=== PATIENT | female | born 1935 | race Caucasian/White ===

== ENCOUNTER 2017-07-17 08:27 | Inpatient (IN) ==
[2017-07-17] MEDS ORDERED: IOPAMIDOL 100 ML BOTTLE IV ONE (08:28)
--- NOTE | 2017-07-17 09:12 | Cat Scan Report ---
CLINICAL INFORMATION: Altered level of consciousness and fever COMPARISON: 03/25/2017 TECHNIQUE: 2.5 mm helical slices were obtained in the skull base to vertex. Following reconstruction, axial reformatted images were reviewed at bone and parenchymal windows. The exam was performed using radiation dose optimization techniques including, but not limited to, automated exposure control, adjustment of the mA and/or kV according to patient size and use of iterative reconstruction technique. FINDINGS: The ventricles, sulci, fissures, and cisterns are symmetrically enlarged palpable with moderate age-related atrophy - no subdural hemorrhage or other extra-axial fluid collections appreciated. Moderate patchy chronic ischemic changes in the deep cerebral white matter seen - as before. There is also focal chronic ischemia in the left external capsule and 8 mm remote lacunar infarct in the right lentiform nucleus. There is no intracerebral hemorrhage, mass effect edema or other acute finding. Bone windows show no osseous abnormality IMPRESSION: Moderate atrophy and chronic ischemic changes in the the cerebral white matter and remote lacunar infarct right lentiform nucleus. No acute finding - stable from 03/25/2017. Interpreted and Authenticated by: Jose March 07/17/17
[2017-07-17 09:48] LABS: Mean Cell Volume 76.6 fL (80.0-100.0); Mean Corpuscular HGB Conc 31.7 g/dL (31.0-36.0); Mean Corpuscular Hemoglobin 24.3 pg (26.0-34.0); Platelet Count 439 K/mcL (140-440); RBC 4.07 M/mcL (4.00-5.20); Red Cell Distribution Width 18.2 % (11.5-14.5)
--- NOTE | 2017-07-17 09:50 | Emergency Department Note ---
Altered Mental Status HPI - General Chief Complaint: Weakness Stated Complaint: Weakness, Altered LOC, Fever Time Seen by Provider: 07/17/17 09:47 Source: patient, family, EMS Mode of arrival: EMS Limitations: no limitations - History of Present Illness HPI Narrative: See history and physical dictated by Dr. jaramillo. At the change of shift I am assuming care. On my review with patient, the history includes 3 weeks ago a history of a fall when she was seen in the emergency room and then when to her [id number]'s mother's home for care because there was space there. She was able after that fall to still walk with a walker but she has had a 3 week decline in her general strength as well as mental status changes where she has been less able to respond appropriately or sharply where as previously she was driving and could do well with math and spelling. She is on no new medications. No previous known history of dementia or Alzheimer. Father had dementia. No previous stroke history. She is also been worked up for back pain that has been severe and fairly new. She sees Dr. Viramontes at [facility] has, also seen, student records specialist and had x-ray and MRI done without any findings that were surgical. She has new stomach pain. This is in her abdomen and she points to her mid to lower half of her abdomen. - Related Data Home Medications Medication Instructions Recorded Confirmed Vitamin D3 1 each PO QDAY 08/23/16 08/23/16 cyanocobalamin (vit B-12) 5,000 5,000 mcg SUBLINGUAL QDAY 08/23/16 08/23/16 mcg sublingual tablet omega-3 fatty acids 3 cap PO QDAY 08/23/16 08/23/16 Previous Rx's Medication Instructions Recorded denosumab 60 mg/mL subcutaneous 60 mg SUB-Q .COMPLEX #1 ml 07/14/15 syringe sertraline 50 mg tablet 50 mg PO QDAY #90 tab 09/10/15 simvastatin 10 mg tablet 10 mg PO QPM #90 tab 09/10/15 levothyroxine 50 mcg capsule 50 mcg PO QDAY #90 cap 10/08/15 gabapentin 600 mg tablet 600 mg PO TID 30 Days #90 tab 11/12/15 hydroxychloroquine 200 mg tablet 200 mg PO QDAY #30 tab 09/28/16 Ciprofloxacin HCl [Cipro] 500 mg PO BID #14 tab 06/13/17 Allergies Allergy/AdvReac Type Severity Reaction Status Date / Time aspirin Allergy Unknown Unknown Verified 08/23/16 10:09 morphine Allergy Unknown Unknown Verified 08/23/16 10:09 Pollens Allergy Unknown Unknown Uncoded 08/23/16 10:09 Past Medical History - Past Medical History Medical history: Reports: arthritis, cancer (breast), hyperlipidemia, other ( anemia (microcytic), Sjogren's disease, osteoporosis, neuropathy. Frequent falls. Raynaud's. Chronic narcotics. Spondylolisthesis.). 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 Absent: respiratory distress, wheezes, stridor, accessory muscle use Location: rales: Left (Base, mild, initial inspiratory) Cardiovascular: Present: regular rate, normal rhythm. Absent: systolic murmur, diastolic murmur Abdominal: Present: soft. Absent: distention, tenderness, guarding, rebound, organomegaly, ascites, mass Extremities: Absent: pedal edema, pretibial edema Neurological: Present: alert Speech: Present: fluid speech Cranial nerves: EOM function (II, III, IV, ): Normal, tongue deviation (XII): Normal Cerebellar function: finger to nose: Normal, heel to lares: Abnormal Right, Abnormal Left (Does not seem to comprehend the instructions to pull her heel all the way up. She is not able to comprehend or obey with the right side.) Motor strength - LUE: 4/5 Motor strength - RUE: 4/5 Motor strength - LLE: 4/5 Motor strength - RLE: 4/5 Psychiatric: Present: flat affect Skin: Present: warm, dry Course Course Narrative: 9:45 AM Will add chest x-ray. Labs are still pending. CT of the head was negative. 10:20 AM Has some hypokalemia at 3.2. Alkaline phosphate is quite significantly elevated at 382. With this in combination with abdominal pain will do an abdominal pelvic CT. We will add a TSH also. 11:05 AM TSH is normal. UA is unremarkable on the dip. Will make sure there is a culture. Chart review includes that her anemia is chronic and they have tried iron replacement in the past. Other history also reviewed. CT of the abdomen still pending. 1:15 PM in the past 1 hour spoken with patient about the CT scan which demonstrates an apple core lesion 3.3 cm in the right mid colon as well as 2 large masses in the right anterior mesenteric cavity 5 cm and 2 cm respectively as well as multiple suspicious lymph nodes that appear to be metastatic lesions. In the liver are widely disseminated multiple large lesions including up to 8.5 cm. Discussion with surgeon, Dr. 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 I discussed with Dr. Gomez, oncologist at [facility], with consideration for her long-term care where to go afterwards. Biopsy is needed. Her PE may be purely incidental as well but anticoagulation after biopsy would be considered. In speaking with her family, she is unable to walk with any degree of strength or surety to prevent falls. She is unable to return to her [id number] mother's home because of the intensity of care and risks there. She will therefore, need admission for qualifying for additional long-term care as well as to workup the causes of her mental status changes and weakness to make sure there are to other underlying problems or conditions. She can meanwhile then have the ultrasound or CT guided biopsy. She can have consultation with the oncologist in the future. I spoke with hospitalist, Dr. Tian, who kindly accepted her care and she will be sent to [facility]. Vital Signs Temperature 98.6 F 07/17/17 08:29 Pulse Rate 93 H 07/17/17 08:29 Respiratory Rate 18 07/17/17 08:29 Blood Pressure 111/61 07/17/17 08:29 Pulse Oximetry (%) 97 07/17/17 08:29 Temperature 98.6 F 07/17/17 08:29 Pulse Rate 83 07/17/17 12:01 Respiratory Rate 15 07/17/17 12:01 Blood Pressure 93/66 07/17/17 12:01 Pulse Oximetry (%) 98 07/17/17 12:01 Altered Mental Status - Lab Data Lab results reviewed: Yes I reviewed the patient's lab results. Result diagrams: 07/17/17 08:55 07/17/17 08:54 Lab Results 07/17/17 07/17/17 07/17/17 Range/Units 08:54 08:54 08:54 WBC (4.5-11.0) K/mcL RBC (4.00-5.20) M/mcL Hgb (12.0-15.0) g/dL Hct (36.0-48.0) % POC Hct 33.0 L (36.0-48.0) % MCV (80.0-100.0) fL MCH (26.0-34.0) pg MCHC (31.0-36.0) g/dL RDW (11.5-14.5) % Plt Count (140-440) K/mcL MPV (7.4-10.4) fL Total Counted Seg Neutrophils % (38-78) % Band Neutrophils % (0-10) % Lymphocytes % (15-49) % Monocytes % (Manual) (1-12) % Eosinophils % (Manual) (0-7) % Platelet Estimate (NORMAL) RBC Morphology (NORMAL) Hypochromasia (NONE SEEN) Poikilocytosis (NONE SEEN) Anisocytosis (NONE SEEN) Microcytosis (NONE SEEN) POC PT 16.5 H (11.9-14.5) sec POC INR 1.4 H (0.9-1.2) APTT 37 (20-37) sec POC Sodium 135 (133-145) mmol/L Sodium 134 (133-145) mmol/L POC Potassium 3.0 L (3.3-5.1) mmol/L Potassium 3.2 L (3.3-5.1) mmol/L POC Chloride 100 (96-108) mmol/L Chloride 96 (96-108) mmol/L Carbon Dioxide 23 (22-30) mmol/L POC Total CO2 24 (22-30) mmol/L Anion Gap 15.0 (8-16) POC BUN 18 (8-23) mg/dl BUN 17 (8-23) mg/dl Creatinine 0.7 (0.6-1.1) mg/dl POC Creatinine 0.6 (0.6-1.1) mg/dl GFR Calculation 81 Glucose 112 H (70-105) mg/dL POC Glucose 115 H (70-105) mg/dL Calcium 9.1 (8.6-10.4) mg/dl POC WB Ioniz Calcium 1.17 (1.16-1.32) mmol/L Total Bilirubin 0.8 (0.0-1.0) mg/dL AST 137 H (0-37) U/l ALT 57 H (0-40) U/l Alkaline Phosphatase 382 H (39-117) U/L Troponin T < 0.01 (0-0.03) ng/ml Total Protein 7.5 (5.9-8.4) gm/dL Albumin 2.8 L (3.2-5.2) gm/dL Globulin 4.7 H (2.2-3.7) gm/dL Albumin/Globulin Ratio 0.6 L (1.0-2.3) TSH (0.27-5.01) uIU/ml Urine Color Urine Appearance Urine pH (5.0-9.0) Ur Specific [place] (1.000-1.035) Urine Protein (NEG) mg/dL Urine Glucose (UA) (NEG) mg/dL Urine Ketones (NEG) mg/dL Urine Occult Blood (<0.03) mg/dL Urine Nitrate (NEG) Urine Bilirubin (NEG) mg/dL Urine Urobilinogen (NEG) mg/dL Ur Leukocyte Esterase (NEG) /uL Ur Culture Indicated? 07/17/17 07/17/17 07/17/17 Range/Units 08:55 08:57 09:35 WBC 8.3 (4.5-11.0) K/mcL RBC 4.07 (4.00-5.20) M/mcL Hgb 9.9 L (12.0-15.0) g/dL Hct 31.2 L (36.0-48.0) % POC Hct (36.0-48.0) % MCV 76.6 L (80.0-100.0) fL MCH 24.3 L (26.0-34.0) pg MCHC 31.7 (31.0-36.0) g/dL RDW 18.2 H (11.5-14.5) % Plt Count 439 (140-440) K/mcL MPV 8.4 (7.4-10.4) fL Total Counted 100 Seg Neutrophils % 91 H (38-78) % Band Neutrophils % 2 (0-10) % Lymphocytes % 2 L (15-49) % Monocytes % (Manual) 4 (1-12) % Eosinophils % (Manual) 1 (0-7) % Platelet Estimate Normal (NORMAL) RBC Morphology Abnorm A (NORMAL) Hypochromasia 1+ A (NONE SEEN) Poikilocytosis 1+ A (NONE SEEN) Anisocytosis 1+ A (NONE SEEN) Microcytosis 1+ A (NONE SEEN) POC PT (11.9-14.5) sec POC INR (0.9-1.2) APTT (20-37) sec POC Sodium (133-145) mmol/L Sodium (133-145) mmol/L POC Potassium (3.3-5.1) mmol/L Potassium (3.3-5.1) mmol/L POC Chloride (96-108) mmol/L Chloride (96-108) mmol/L Carbon Dioxide (22-30) mmol/L POC Total CO2 (22-30) mmol/L Anion Gap (8-16) POC BUN (8-23) mg/dl BUN (8-23) mg/dl Creatinine (0.6-1.1) mg/dl POC Creatinine (0.6-1.1) mg/dl GFR Calculation Glucose (70-105) mg/dL POC Glucose (70-105) mg/dL Calcium (8.6-10.4) mg/dl POC WB Ioniz Calcium (1.16-1.32) mmol/L Total Bilirubin (0.0-1.0) mg/dL AST (0-37) U/l ALT (0-40) U/l Alkaline Phosphatase (39-117) U/L Troponin T (0-0.03) ng/ml Total Protein (5.9-8.4) gm/dL Albumin (3.2-5.2) gm/dL Globulin (2.2-3.7) gm/dL Albumin/Globulin Ratio (1.0-2.3) TSH 1.94 (0.27-5.01) uIU/ml Urine Color Yellow Urine Appearance Cloudy Urine pH 5.0 (5.0-9.0) Ur Specific [place] 1.020 (1.000-1.035) Urine Protein Neg (NEG) mg/dL Urine Glucose (UA) Negative (NEG) mg/dL Urine Ketones Neg (NEG) mg/dL Urine Occult Blood Neg (<0.03) mg/dL Urine Nitrate Neg (NEG) Urine Bilirubin Neg (NEG) mg/dL Urine Urobilinogen Neg (NEG) mg/dL Ur Leukocyte Esterase Neg (NEG) /uL Ur Culture Indicated? No - Radiology Data Radiology results reviewed: Yes I reviewed the patient's radiology results. - EKG Data EKG results narrative: no acute ACS findings. Will be interpreted by heat and vent aircraft mechanic. Disposition Pt seen by PRESSURISED CONTAINER FILLER/PA only: No Clinical Impression: Weakness, RBC microcytosis, Hypokalemia, Elevated alkaline phosphatase level, Metastatic cancer, Lesion of colon Altered mental status, unspecified Qualifiers: Altered mental status type: unspecified Qualified Code(s): R41.82 - Altered mental status, unspecified Anemia Qualifiers: Anemia type: unspecified type Qualified Code(s): D64.9 - Anemia, unspecified Abdominal pain Qualifiers: Abdominal location: lower abdomen, unspecified Qualified Code(s): R10.30 - Lower abdominal pain, unspecified Disposition: Xfer As Inpt ([facility]) Condition: Serious
[2017-07-17 10:06] LABS: ALT/SGPT 57 U/l (0-40); Albumin 2.8 gm/dL (3.2-5.2); Albumin/Globulin Ratio 0.6 (1.0-2.3); Alkaline Phosphatase 382 U/L (39-117); Blood Urea Nitrogen 17 mg/dl (8-23)
[2017-07-17 10:21] LABS: Appearance,Urine CLOUDY; Bilirubin,Urine NEG (NEG); Color,Urine YELLOW; Glucose,Urine (UA) NEGATIVE (NEG); Leukocyte Esterase,Urine NEG /uL (NEG); Protein,Urine NEG (NEG); Urine Blood NEG mg/dL (<0.03); Urobilinogen,Urine NEG (NEG)
[2017-07-17 10:31] LABS: Anisocytosis 1+ (NONE SEEN); Band Neutrophils % 2 % (0-10); Eosinophils % (Manual) 1 % (0-7); Hypochromasia 1+ (NONE SEEN); Lymphocytes % 2 % (15-49); Monocytes % (Manual) 4 % (1-12); Platelet Estimate NORMAL (NORMAL); RBC Morphology ABNORM (NORMAL); Segmented Neutrophils % 91 % (38-78)
--- NOTE | 2017-07-17 10:36 | XRay Report ---
CLINICAL INFORMATION: Weakness and rales the left base COMPARISON: 06/22/2017 FINDINGS: Heart size, mediastinum and pulmonary vessels are normal. A small vague interstitial infiltrate may be developing in the right lower lobe. Right diaphragm is mildly elevated. IMPRESSION: Possible developing right lower lobe infiltrate. Suggest short-term radiographic follow-up. Interpreted and Authenticated by: Jose March 07/17/17
--- NOTE | 2017-07-17 11:54 | Cat Scan Report ---
CLINICAL INFORMATION: Abdominal pain with elevated alkaline phosphatase and fever COMPARISON: Localizer images, which included the abdomen, from a lumbar MRI - 03/26/2014 TECHNIQUE: Following enteric contrast, 80 cc of Isovue-300 were injected intravenously, and 60 seconds later, 0.625 mm helical slices were obtained from the mid heart through the subtrochanteric regions. Following reconstruction, 2.5 mm sagittal, coronal and axial reformatted images were processed and reviewed at bone, lung and soft tissue windows. Five minutes later, 0.625 mm helical slices were obtained from the mid heart through the kidneys and viewed at soft tissue windows.The exam was performed using radiation dose optimization techniques including, but not limited to, automated exposure control, adjustment of the mA and/or kV according to patient size and use of iterative reconstruction technique. FINDINGS: Lung bases show no nodules - only minor atelectasis. There appears to be an embolus within the medial basilar segmental of the right lower lobe pulmonary artery. This should be confirmed with CT pulmonary angiogram. Images of the abdomen show multiple large inhomogeneous low-attenuation lesions with rim enhancement which are widely disseminated throughout the liver. They range up to 8.5 cm in the right hepatic lobe. They're suspicious for metastatic disease. The gallbladder and bile ducts are normal: CBD is 5 mm. Both kidneys, adrenal glands, spleen, pancreas and aorta including aortic branches are normal in size configuration and attenuation without focal lesion. Images through the pelvis oh the urinary bladder to be unremarkable. Uterus is either quite diminutive or is been partially surgically resected. The ovarian regions are normal. Right colon is poorly distended, but there is a probable 3.3 cm apple core mass in the mid right colon (axial image 107 and sagittal image 49). There are also two large masses, 5 cm and 2.5 cm, respectively in the in the adjacent right anterior mesenteric cavity. There is suspicious for metastatic lymph nodes. The remainder of the colon, small bowel and stomach are normal. Bone windows show no osseous metastases. There is L3-4 spondylolysis with grade 1 spinal listhesis. IMPRESSION: 1. Suspect 3.3 apple core mass in the mid right colon with two large metastatic lymph nodes in the adjacent right anterior mesenteric cavity. In addition, there are multiple large metastases dominating the liver parenchyma. Metastatic colon carcinoma is suspected. Suggest ultrasound-guided biopsy of one of the liver metastases for tissue diagnosis. Colonoscopy might be considered. 2. Probable pulmonary embolus - medial basilar segmental right lower lobe pulmonary artery. Suggest: CT pulmonary angiogram Interpreted and Authenticated by: Jose March 07/17/17
[2017-07-17] MEDS ORDERED: oxyCODONE HCL 5 MG TABLET PO PRN (15:24)
[2017-07-17] MEDS ORDERED: HYDROmorphone 2 MG/ML VIAL IV PRN (15:24)
[2017-07-17] MEDS ORDERED: POTASSIUM CHLORIDE 40 MEQ in DEXTROSE 5% IN WATER 500 ML IV ONE (15:24)
[2017-07-17] MEDS ORDERED: NALOXONE HCL 0.4 MG/ML VIAL IV PRN (15:24)
[2017-07-17] MEDS ORDERED: ONDANSETRON 4 MG/2 ML VIAL IV PRN (15:24)
[2017-07-17] MEDS ORDERED: LORazepam 2 MG/ML VIAL IV ONE (15:56)
--- NOTE | 2017-07-17 16:43 | Internal Med History&Physical ---
Medical - H&P: HPI Patient information: Note initiated : 07/17/17 at 4:36 pm Service Date, if different from initiated Date: [] Patient: Odessa Owens 82 y/o F admitted on 07/17/17 for Weakness, Altered LOC , Fever. Chief Complaint: [] History of present illness: Ms. Owens is a 82 year old Female living by self, with close watch by family presents to the ER today for evaluation of altered mental status, the patient has not been her self over the last 3 weeks, decreased appetitie, and weight loss of approximately 11lbs. The patient this AM was very confused, unable to answer questions appropriately and therefore was brought in for further evaluation. Initially given her confusion, TIA/ CVA was considered, Head CT was done in the ER which was neg, CXR showed possible infiltrate in the right lower lung. The patient then noted she is also having abdominal pain. The patient underwent a Abdomen and pelvis CT which showed a tumor apple core in the right colon, multiple metatstasis in the liver, and retroperitoneal metastasis. Initial Dr Niño was consulted who noted that she is not a surgical candidate. Dr Gomez was consulted on the phone by the ER and as per the ER provider, the patient did not warrant oncological intervention at this time. HE refused to accept the patient as transfer and advised workup as outpatient. GIven that the patient was confused, and possible pna, CT abdomen showing new mass, edison signifcant mes, the patient was admitted ot the hospital for further management. The patient denies any acute complaints, most history provided by family, she wishes to be DNR, I reviewed the overall prognosis with the family, given her overall poor functional score, her significant metastatic burden I dont think she is a candidate for any aggresive intervention. The family wants the initial workup done and will consider palliative care should this route returner to be cancerous. Will admit the patient to the hospital for workup of this malignancy, PNA,and PE , given liver biopsy planned, I am not pursuing anticoagulation of this patient at this time. The patient has not had a colonoscopy as per the family. All systems: reviewed and no additional remarkable complaints except as stated ( intermittent abdomen pain, some headaches, rest is negative.) Medical - H&P: PMH Medical history: Medical History (This Medical Record has been edited. Action required.) Anemia (Chronic) Arthritis (Chronic) Breast cancer (Chronic) Muscle pain (Chronic) Fatigue (Chronic) Hypercholesterolemia (Chronic) Osteoarthritis (Chronic) Osteoporosis (Chronic) History of Sjogren's disease (Chronic) Long-term use of immunosuppressant medication (Chronic) Lumbar radiculopathy (Acute) Trochanteric bursitis, right hip (Acute) History of chemotherapy (Chronic ~1988) History of radiation therapy (Chronic ~1988) Hypothyroidism (Chronic) Dyslipidemia (Chronic) Intention tremor (Chronic) Diverticulosis of sigmoid colon (Chronic) Accident (Resolved) Surgical history: Past Surgical History (This Medical Record has been edited. Action required.) History of colonoscopy (Chronic 11/08/06) History of mastectomy (Chronic) History of orthopedic surgery (Chronic ~1989) History of rotator cuff surgery (Chronic) History of surgery (Chronic) Status post cervical spinal fusion (Chronic) History of back surgery (Resolved) History of carpal tunnel repair (Resolved) History of colonoscopy (Resolved) History of elbow surgery (Resolved) History of hip surgery (Resolved) History of mastectomy, total (Resolved) S/P ankle fusion (Resolved) Status post wrist surgery (Resolved) Pertinent family history: Family History (This Medical Record has been edited. Action required.) Father Dementia Aunt Diabetes mellitus Mother Arthritis Neoplasm of lung Brother Essential hypertension Grandfather Myocardial Infarction Other CVA (cerebral vascular accident) Cancer Epilepsy Medical - H&P: Meds Home Medications Medication Instructions Recorded Confirmed Type denosumab 60 mg/mL subcutaneous 60 mg SUB-Q .COMPLEX #1 ml 07/14/15 08/23/16 Rx syringe sertraline 50 mg tablet 50 mg PO QDAY #90 tab 09/10/15 08/23/16 Rx simvastatin 10 mg tablet 10 mg PO QPM #90 tab 09/10/15 08/23/16 Rx levothyroxine 50 mcg capsule 50 mcg PO QDAY #90 cap 10/08/15 08/23/16 Rx gabapentin 600 mg tablet 600 mg PO TID 30 Days #90 tab 11/12/15 08/23/16 Rx Vitamin D3 1 each PO QDAY 08/23/16 08/23/16 History cyanocobalamin (vit B-12) 5,000 5,000 mcg SUBLINGUAL QDAY 08/23/16 08/23/16 History mcg sublingual tablet omega-3 fatty acids 3 cap PO QDAY 08/23/16 08/23/16 History hydroxychloroquine 200 mg tablet 200 mg PO QDAY #30 tab 09/28/16 Rx Ciprofloxacin HCl [Cipro] 500 mg PO BID #14 tab 06/13/17 Rx Allergies Allergy/AdvReac Type Severity Reaction Status Date / Time aspirin Allergy Unknown Unknown Verified 08/23/16 10:09 morphine Allergy Unknown Unknown Verified 08/23/16 10:09 Pollens Allergy Unknown Unknown Uncoded 08/23/16 10:09 Medical - H&P: Exam - Constitutional Vitals: Temp Pulse Resp BP Pulse Ox 98.7 F 95 H 12 119/74 95 07/17/17 15:45 07/17/17 15:45 07/17/17 15:45 07/17/17 15:45 07/17/17 15:45 Exam: GENERAL: The patient confused aoo x 1, frail individual VITAL SIGNS: Reviewed and as noted elsewhere. HEENT: Head is normocephalic and atraumatic. Extraocular muscles are intact. Pupils are equal, round, and reactive to light. Nares appeared normal. Mouth appears any without lesions. Mucous membranes are dry NECK: Normal to inspection, Supple, No lymphadenopathy or thyromegaly. LUNGS: Air entry equal on both sides, no wheezing, crackles or rhonchi noted. No accessory muscles of respiration HEART: Regular rate and rhythm normal, S1 and S2 heard, no Gallop, S3 or Rub Noted, No Gross murmur heard. ABDOMEN: Soft, nontender, and nondistended. Positive bowel sounds. significnat hepatomegaly present. EXTREMITIES: No cyanosis, clubbing, rash, lesions or edema. NEUROLOGIC: Cranial nerves II through XII are grossly intact. Motor and Sensory System Grossly Intact PSYCHIATRIC: confused, not agitated. SKIN: No ulceration or wounds noted, No jaundice, No rash noted. Medical - H&P: Reslt - Labs CBC & Chem 7: 07/17/17 08:55 07/17/17 08:54 Labs: Short CBC 07/17/17 Range/Units 08:55 WBC 8.3 (4.5-11.0) K/mcL Hgb 9.9 L (12.0-15.0) g/dL Hct 31.2 L (36.0-48.0) % Plt Count 439 (140-440) K/mcL BMP 07/17/17 08:54 Sodium 134 Potassium 3.2 L Chloride 96 Carbon Dioxide 23 BUN 17 Creatinine 0.7 Glucose 112 H Calcium 9.1 Cardiac Enzymes 07/17/17 Range/Units 08:54 Troponin T < 0.01 (0-0.03) ng/ml Liver Function 07/17/17 Range/Units 08:54 Total Bilirubin 0.8 (0.0-1.0) mg/dL AST 137 H (0-37) U/l ALT 57 H (0-40) U/l Alkaline Phosphatase 382 H (39-117) U/L Albumin 2.8 L (3.2-5.2) gm/dL Urine 07/17/17 Range/Units 09:35 Urine Color Yellow Urine Appearance Cloudy Urine pH 5.0 (5.0-9.0) Ur Specific Redkey 1.020 (1.000-1.035) Urine Protein Neg (NEG) mg/dL Urine Glucose (UA) Negative (NEG) mg/dL Medical - H&P: A/P - Narrative A/P Narrative: A/P Pneumonia - on levofloxacin Colon cancer with metastasis: get liver biopsy, given extensive mets, and likely necrotic material on the biopsy its possible that the biopsy may adelso eg and we will have to repeat again. Patient is inclining towards comfort care Pulmonary embolism: Possible noted on the CT Abdomen, I will not peruse this at this time, given plan for liver biopsy. Should patient choose palliative care/ hospice post diagnosis confirmation, then anticoagulation would be a moot point , and at this time its likely we would be considering this option. 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 Social History - Tobacco smoking status: Former smoker (remote) - Alcohol alcohol intake frequency: holiday/special occasion only - Substance use substance use type: does not use
[2017-07-17] MEDS: DEXTROSE 5%-LR 1,000 ML IV SCH (17:21)
[2017-07-17] MEDS: LEVOFLOXACIN 500 MG/100 ML BAG IV SCH (17:22)
--- NOTE | 2017-07-17 17:54 | Ultrasound Report ---
ORIGINAL REPORT CLINICAL INFORMATION: Multiple large metastases to the liver on CT. Suspect colon carcinoma TECHNIQUE: The procedure and risks including possibility of bleeding, infection, bile leak, pneumothorax, bowel perforation and arteriovenous fistula were explained to the patient. She understood and wished to proceed. She was medicated prior to the procedure with 1 g of Ativan which was given orally. Blood pressure and pulse oximeter were monitored and she maintained consciousness during the procedure. Total sedation time 16 minutes. A large lesion in the lateral segment of the left hepatic lobe was first sonographically senior it security analyst localized. The skin overlying this lesion was marked, prepped and locally anesthetized to the liver capsule level using a 25-gauge spinal needle and 1% lidocaine. A 17-gauge Temno guide needle was placed under sonographic guidance into the subcapsular region of the lateral segment left hepatic lobe. Through this guide, a 18-gauge Temno needle was placed under sonographic guidance into the lesion and three core biopsy samples were obtained. The sample sent in formalin to pathology and the needle was washed in normal sterile saline between each pass. Post procedure scanning shows no hemorrhage or other complication IMPRESSION: Percutaneous ultrasound-guided biopsy of a large metastatic lesion in the lateral segment left hepatic lobe. No apparent complication. 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
[2017-07-17] MEDS ORDERED: GADOBUTROL 7.5 MMOL/7.5 ML VIAL IV ONE (18:46)
[2017-07-17] MEDS: 0.9 % SODIUM CHLORIDE 10 ML SYRINGE IV SCH (20:56)
[2017-07-18] MEDS: DEXTROSE 5%-LR 1,000 ML IV SCH ×2 (05:08→13:43)
[2017-07-18] MEDS: 0.9 % SODIUM CHLORIDE 10 ML SYRINGE IV SCH ×3 (05:08→20:56)
--- NOTE | 2017-07-18 06:59 | Magnetic Resonance Report ---
CLINICAL INFORMATION: Confusion and decreased mental status. Metastatic breast and colon cancer COMPARISON: None. TECHNIQUE: Sagittal T1 FLAIR, axial diffusion ADC, T1 FLAIR, T2 FLAIR propeller, T2 propeller gradient, T1 post Magnevist and coronal T1 FLAIR post Magnevist images were acquired. FINDINGS: The ventricles, sulci, fissures and cisterns are symmetrically enlarged compatible with mild age-related atrophy - no extra-axial fluid collections or masses are appreciated. Mild patchy chronic ischemic changes in the deep cerebral white matter are typical for age. There is no abnormal enhancement to suggest metastatic disease. No restricted diffusion edema, hemorrhage or other acute finding. Signal void in intracerebral arteries, extra-axial cranial nerves, pituitary and orbits are all normal. IMPRESSION: Mild atrophy and chronic ischemic changes in the deep cerebral white matter - expected for age. No evidence of metastatic disease or other lesion. Interpreted and Authenticated by: Jose March 07/18/17
[2017-07-18 07:20] LABS: ALT/SGPT 50 U/l (0-40); Albumin 2.8 gm/dL (3.2-5.2); Albumin/Globulin Ratio 0.7 (1.0-2.3); Alkaline Phosphatase 317 U/L (39-117); Basophils # (Auto) 0 K/mcL (0.0-0.3); Basophils % (Auto) 0.1 % (0.0-2.0); Bilirubin,Direct 0.3 mg/dL (0.0-0.3); Blood Urea Nitrogen 13 mg/dl (8-23); Eosinophils # (Auto) 0.2 K/mcL (0.0-0.7); Eosinophils % (Auto) 2.6 % (0.0-7.0); Gamma Glutamyl Transpeptidase 299 U/L (5-36); Lymphocytes # (Auto) 0.8 K/mcL (1.5-4.8); Lymphocytes % (Auto) 8.5 % (15.5-49.0); Mean Cell Volume 77.5 fL (80.0-100.0); Mean Corpuscular HGB Conc 32.8 g/dL (31.0-36.0); Mean Corpuscular Hemoglobin 25.4 pg (26.0-34.0); Monocytes # (Auto) 0.8 K/mcL (0.1-0.9); Monocytes % (Auto) 8.8 % (1.0-12.0); Platelet Count 310 K/mcL (140-440); RBC 3.76 M/mcL (4.00-5.20); Red Cell Distribution Width 18.8 % (11.5-14.5); Uric Acid 3.5 mg/dL (2.5-8.0)
[2017-07-18] MEDS: PANTOPRAZOLE 40 MG TABLET PO SCH (07:49)
[2017-07-18] MEDS: LEVOFLOXACIN 500 MG/100 ML BAG IV SCH (10:42)
--- NOTE | 2017-07-18 14:38 | Internal Med Progress Note ---
Medical - PN: Subj Patient information: Note initiated : 07/18/17 at 2:33 pm Service Date, if different from initiated Date: [] Patient: Odessa Owens 82 y/o F admitted on 07/17/17 for Weakness, Altered LOC , Fever/Pneumonia. Chief Complaint: [] Interval history: Ms. Owens is a 82 year old Female living by self, with close watch by family presents to the ER today for evaluation of altered mental status, the patient has not been her self over the last 3 weeks, decreased appetitie, and weight loss of approximately 11lbs. The patient this AM was very confused, unable to answer questions appropriately and therefore was brought in for further evaluation. Initially given her confusion, TIA/ CVA was considered, Head CT was done in the ER which was neg, CXR showed possible infiltrate in the right lower lung. The patient then noted she is also having abdominal pain. The patient underwent a Abdomen and pelvis CT which showed a tumor apple core in the right colon, multiple metatstasis in the liver, and retroperitoneal metastasis. Initial Dr Niño was consulted who noted that she is not a surgical candidate. Dr Gomez was consulted on the phone by the ER and as per the ER provider, the patient did not warrant oncological intervention at this time. HE refused to accept the patient as transfer and advised workup as outpatient. GIven that the patient was confused, and possible pna, CT abdomen showing new mass, edison signifcant mes, the patient was admitted ot the hospital for further management. The patient denies any acute complaints, most history provided by family, she wishes to be DNR, I reviewed the overall prognosis with the family, given her overall poor functional score, her significant metastatic burden I dont think she is a candidate for any aggresive intervention. The family wants the initial workup done and will consider palliative care should this turner and former automatic to be cancerous. Will admit the patient to the hospital for workup of this malignancy, PNA,and PE , given liver biopsy planned, I am not pursuing anticoagulation of this patient at this time. The patient has not had a colonoscopy as per the family. 6/ Pt seen examined, still confused, MRI negative family updated on the plan of care. The patient's labs are stable, we decided not to pursue the pulmonary embolus or consider anticoagulation given overall poor prognosis. We are waiting for the official biopsy results to confirm my suspicions. I did talk with the pathologist this afternoon confirmed that this is a metastatic cancer likely secondary to colon cancer. Family is yet to be updated Plan for palliative care as patient is a very poor candidate for any intervention, family is on board with the plan Pertinent ROS: unable - Constitutional Vitals: Vital Signs Temp Pulse Resp BP Pulse Ox 98.2 F 97 H 18 93/60 96 07/18/17 13:00 07/18/17 13:00 07/18/17 13:00 07/18/17 13:00 07/18/17 13:00 Period Temp Pulse Resp BP Sys/Julian Pulse Ox Last 24 Hr 98.1 F-99 F 87-104 12-24 93-145/60-75 95-97 Intake and Output 07/18/17 07/18/17 07/18/17 05:59 13:59 21:59 Intake Total 520 / 520 1100 / 1100 Output Total 2 / 2 Balance 518 / 518 1100 / 1100 Intake & Output: Intake & Output 07/18/17 07/18/17 07/18/17 05:59 13:59 21:59 Intake Total 520 / 520 1100 / 1100 Output Total 2 / 2 Balance 518 / 518 1100 / 1100 Intake: IV 520 / 520 1100 / 1100 Dextrose 5%-Lactated Ringers 1, 1000 / 1000 000 ml @ 75 mls/hr IV .[id number] [facility] Rx#:[id number] Oral 0 / 0 Output: # of times incontinent of urine 2 / 2 Other: Stool Size Smear Stool Color Brown Stool Consistency Soft # Bowel Movements 1 Exam: Constitutional; Afebrile, cooperative, alert, not in distress.thin, malnourished Eyes- No icterus, , No periorbital swelling Ears- Ext ear normal, hearing normal to conversation. Neck- Midline trachea, supple Respiratory system: Air Entry equal on both sides, No crackles or wheezing, no rhonchi. ant exam CVS- Rate rhythm regular, S1,S2 heard, no gallop, no rub. Abdomen- Soft nontender abdomen, no organomegaly, no tenderness, no guarding or rigidity, PATENT EXAMINER- AOOx1-2, moving all extremities, no gross focal deficit noted. Medical - PN: Obj Da - Labs CBC & Chem 7: 07/18/17 04:47 07/18/17 04:47 Labs: Abnormal Lab Results 07/18/17 07/18/17 07/17/17 04:47 04:47 08:55 RBC 3.76 L Hgb 9.6 L 9.9 L Hct 29.2 L 31.2 L POC Hct MCV 77.5 L 76.6 L MCH 25.4 L 24.3 L RDW 18.8 H 18.2 H Gran % 80.0 H Lymph % (Auto) 8.5 L Lymph # (Auto) 0.8 L Seg Neutrophils % 91 H Lymphocytes % 2 L RBC Morphology Abnorm A Hypochromasia 1+ A Poikilocytosis 1+ A Anisocytosis 1+ A Microcytosis 1+ A POC PT POC INR Sodium 131 L POC Potassium Potassium Carbon Dioxide 21 L Glucose 118 H POC Glucose Phosphorus 1.9 L GGT 299 H AST 114 H ALT 50 H Alkaline Phosphatase 317 H Lactate Dehydrogenase 816 H Albumin 2.8 L Globulin 3.8 H Albumin/Globulin Ratio 0.7 L 07/17/17 07/17/17 08:54 08:54 RBC Hgb Hct POC Hct 33.0 L MCV MCH RDW Gran % Lymph % (Auto) Lymph # (Auto) Seg Neutrophils % Lymphocytes % RBC Morphology Hypochromasia Poikilocytosis Anisocytosis Microcytosis POC PT 16.5 H POC INR 1.4 H Sodium POC Potassium 3.0 L Potassium 3.2 L Carbon Dioxide Glucose 112 H POC Glucose 115 H Phosphorus GGT AST 137 H ALT 57 H Alkaline Phosphatase 382 H Lactate Dehydrogenase Albumin 2.8 L Globulin 4.7 H Albumin/Globulin Ratio 0.6 L Meds: Medications Hydromorphone HCl (Dilaudid) 0.5 mg IV Q2HP PRN PRN Reason: PAIN LEVEL > 6 Dextrose/Lactated Ringer's (Dextrose 5%-Lactated Ringers) 1,000 mls @ 75 mls/ hr IV .[id number] [facility] Stop: 07/19/17 07:23 Last Admin: 07/18/17 13:43 Dose: 75 mls/hr Levofloxacin (Levaquin) 500 mg in 100 mls @ 100 mls/hr IV Q24H [facility] Last Infusion: 07/18/17 11:42 Dose: Infused Naloxone HCl (Narcan) 0.1 mg IV Q2MIN PRN PRN Reason: Opiate Reversal Ondansetron HCl (Zofran) 4 mg IV Q6HP PRN PRN Reason: Nausea And Vomiting Oxycodone HCl (Roxicodone) 5 mg PO Q4HP PRN PRN Reason: PAIN LEVEL 3-6 Pantoprazole Sodium (Protonix) 40 mg PO QAMAC [facility] Last Admin: 07/18/17 07:49 Dose: 40 mg Sodium Chloride (Saline Flush) 10 ml IV Q8 [facility] Last Admin: 07/18/17 05:08 Dose: Not Given Medical - PN: A/P - Time Spent With Patient Total time spent is greater than 50% in coordination of care (as documented) at patient's floor/unit and/or counseling patient: - Narrative A/P Narrative: A/P Pneumonia - on levofloxacinm, continue same Colon cancer with metastasis: get liver biopsy, given extensive mets. Await final biopsy results, pt does not seem a candidate for therapy. Pulmonary embolism: Possible noted on the CT Abdomen, I will not peruse this at this time. Metastatic colon cancer, patient would likely just need palliative care. Altered mental status, secondary to malnutrition/ pna/ significant liver mets? MRI head neg, monitor for now. IV fluids. Anemia: Iron def, no further workup DVT scd DNR code status Overall poor prognosis explained to the family.
[2017-07-19] MEDS: DEXTROSE 5%-LR 1,000 ML IV SCH (03:04)
[2017-07-19 07:13] LABS: Basophils # (Auto) 0 K/mcL (0.0-0.3); Basophils % (Auto) 0 % (0.0-2.0); Eosinophils # (Auto) 0.1 K/mcL (0.0-0.7); Eosinophils % (Auto) 2.2 % (0.0-7.0); Granulocytes % (Auto) 82.2 % (38.0-78.0); Lymphocytes # (Auto) 0.6 K/mcL (1.5-4.8); Lymphocytes % (Auto) 8.6 % (15.5-49.0); Mean Cell Volume 77.9 fL (80.0-100.0); Mean Corpuscular HGB Conc 31.8 g/dL (31.0-36.0); Mean Corpuscular Hemoglobin 24.8 pg (26.0-34.0); Monocytes # (Auto) 0.5 K/mcL (0.1-0.9); Platelet Count 268 K/mcL (140-440); RBC 3.49 M/mcL (4.00-5.20); Red Cell Distribution Width 18.4 % (11.5-14.5)
[2017-07-19 07:41] LABS: ALT/SGPT 42 U/l (0-40); Albumin 2.6 gm/dL (3.2-5.2); Albumin/Globulin Ratio 0.8 (1.0-2.3); Alkaline Phosphatase 257 U/L (39-117); Bilirubin,Direct < 0.2 mg/dL (0.0-0.3); Blood Urea Nitrogen 9 mg/dl (8-23); Gamma Glutamyl Transpeptidase 258 U/L (5-36); Uric Acid 3.1 mg/dL (2.5-8.0)
[2017-07-19] MEDS: PANTOPRAZOLE 40 MG TABLET PO SCH (08:45)
[2017-07-19] MEDS: 0.9 % SODIUM CHLORIDE 10 ML SYRINGE IV SCH ×5 (09:37→21:34)
[2017-07-19] MEDS: LEVOFLOXACIN 500 MG/100 ML BAG IV SCH (09:37)
[2017-07-19] MEDS ORDERED: ONDANSETRON ODT 4 MG TABLET SL PRN (12:38)
[2017-07-19] MEDS ORDERED: LACTOPEROXI/GLUC OXID/POT THIO 1 EACH GEL..EA. TOPICAL PRN (12:38)
[2017-07-19] MEDS ORDERED: morphine 20 MG/ML ORAL.CONC SL PRN ×2 (12:38→12:43)
[2017-07-19] MEDS ORDERED: LORazepam 1 MG TABLET SL PRN (12:43)
--- NOTE | 2017-07-19 13:07 | Internal Med Progress Note ---
Medical - PN: Subj Patient information: Note initiated : 07/19/17 at 1:04 pm Service Date, if different from initiated Date: [] Patient: Odessa Owens 82 y/o F admitted on 07/17/17 for Weakness, Altered LOC , Fever/Pneumonia. Chief Complaint: [] Interval history: Ms. Owens is a 82 year old Female living by self, with close watch by family presents to the ER today for evaluation of altered mental status, the patient has not been her self over the last 3 weeks, decreased appetitie, and weight loss of approximately 11lbs. The patient this AM was very confused, unable to answer questions appropriately and therefore was brought in for further evaluation. Initially given her confusion, TIA/ CVA was considered, Head CT was done in the ER which was neg, CXR showed possible infiltrate in the right lower lung. The patient then noted she is also having abdominal pain. The patient underwent a Abdomen and pelvis CT which showed a tumor apple core in the right colon, multiple metatstasis in the liver, and retroperitoneal metastasis. Initial Dr Niño was consulted who noted that she is not a surgical candidate. Dr Gomez was consulted on the phone by the ER and as per the ER provider, the patient did not warrant oncological intervention at this time. HE refused to accept the patient as transfer and advised workup as outpatient. GIven that the patient was confused, and possible pna, CT abdomen showing new mass, edison signifcant mes, the patient was admitted ot the hospital for further management. The patient denies any acute complaints, most history provided by family, she wishes to be DNR, I reviewed the overall prognosis with the family, given her overall poor functional score, her significant metastatic burden I dont think she is a candidate for any aggresive intervention. The family wants the initial workup done and will consider palliative care should this die turner to be cancerous. Will admit the patient to the hospital for workup of this malignancy, PNA,and PE , given liver biopsy planned, I am not pursuing anticoagulation of this patient at this time. The patient has not had a colonoscopy as per the family. 6/ Pt seen examined, still confused, MRI negative family updated on the plan of care. The patient's labs are stable, we decided not to pursue the pulmonary embolus or consider anticoagulation given overall poor prognosis. We are waiting for the official biopsy results to confirm my suspicions. I did talk with the pathologist this afternoon confirmed that this is a metastatic cancer likely secondary to colon cancer. Family is yet to be updated Plan for palliative care as patient is a very poor candidate for any intervention, family is on board with the plan 07/19 patient seen and examined no acute overnight events, mental status somewhat better today. Patient does not want the IV access as it is bothering her. I reviewed the biopsy results with the family, I suspected this is colon cancer metastatic disease. Official report is pending but I did talk with the pathologist yesterday. Patient's family understanding about the overall poor prognosis plan is to get the patient for palliative care. Plan to discharge to rehab facility tomorrow with palliative care measures. Pertinent ROS: Denies headache, dizziness Denies chest pain, palpitations Denies cough or shortness of breaths some abodminal pain reported to patients family, not to me this AM - Constitutional Vitals: Vital Signs Temp Pulse Resp BP Pulse Ox 98.8 F 92 H 16 113/93 93 07/19/17 12:00 07/19/17 12:00 07/19/17 12:00 07/19/17 12:07/19/17 12:00 Period Temp Pulse Resp BP Sys/Julian Pulse Ox Last 24 Hr 97.7 F-98.8 F 90-94 16-20 103-118/66-93 93-97 Intake and Output 07/18/17 07/19/17 07/19/17 21:59 05:59 13:59 Intake Total 50 / 50 1200 / 1200 Output Total Balance 49 / 49 1199 / 1199 Weight 116 lb Intake & Output: Intake & Output 07/18/17 07/19/17 07/19/17 21:59 05:59 13:59 Intake Total 50 / 50 1200 / 1200 Output Total Balance 49 / 49 1199 / 1199 Weight 116 lb Intake: IV 1000 / 1000 Dextrose 5%-Lactated Ringers 1, 1000 / 1000 000 ml @ 75 mls/hr IV .[id number] [facility] Rx#:[id number] Oral 50 / 50 200 / 200 Output: # of times incontinent of urine Other: Meal Dinner Percent of Meal Consumed 0% Feeding Ability Independent Exam: Constitutional; Afebrile, cooperative, alert, not in distress. thin frail. Eyes- No icterus, No periorbital swelling Neck- Midline trachea, supple Respiratory system: Air Entry equal on both sides, No crackles or wheezing, no rhonchi. ant exam, not in distress CVS- Rate rhythm regular, S1,S2 heard, no gallop, no rub. REVIEWER SALES- AOOx2, moving all extremities, no gross focal deficit noted. Medical - PN: Obj Da - Labs CBC & Chem 7: 07/19/17 05:08 07/19/17 05:08 Labs: Abnormal Lab Results 07/19/17 07/19/17 07/18/17 05:08 05:08 04:47 RBC 3.49 L Hgb 8.6 L Hct 27.2 L POC Hct MCV 77.9 L MCH 24.8 L RDW 18.4 H Gran % 82.2 H Lymph % (Auto) 8.6 L Lymph # (Auto) 0.6 L Seg Neutrophils % Lymphocytes % RBC Morphology Hypochromasia Poikilocytosis Anisocytosis Microcytosis POC PT POC INR Sodium 131 L POC Potassium Potassium Carbon Dioxide 21 L Creatinine 0.5 L Glucose 118 H POC Glucose Calcium 8.5 L Phosphorus 2.5 L 1.9 L GGT 258 H 299 H AST 98 H 114 H ALT 42 H 50 H Alkaline Phosphatase 257 H 317 H Lactate Dehydrogenase 778 H 816 H Albumin 2.6 L 2.8 L Globulin 3.8 H Albumin/Globulin Ratio 0.8 L 0.7 L 07/18/17 07/17/17 07/17/17 04:47 08:55 08:54 RBC 3.76 L Hgb 9.6 L 9.9 L Hct 29.2 L 31.2 L POC Hct 33.0 L MCV 77.5 L 76.6 L MCH 25.4 L 24.3 L RDW 18.8 H 18.2 H Gran % 80.0 H Lymph % (Auto) 8.5 L Lymph # (Auto) 0.8 L Seg Neutrophils % 91 H Lymphocytes % 2 L RBC Morphology Abnorm A Hypochromasia 1+ A Poikilocytosis 1+ A Anisocytosis 1+ A Microcytosis 1+ A POC PT POC INR Sodium POC Potassium 3.0 L Potassium 3.2 L Carbon Dioxide Creatinine Glucose 112 H POC Glucose 115 H Calcium Phosphorus GGT AST 137 H ALT 57 H Alkaline Phosphatase 382 H Lactate Dehydrogenase Albumin 2.8 L Globulin 4.7 H Albumin/Globulin Ratio 0.6 L 07/17/17 08:54 RBC Hgb Hct POC Hct MCV MCH RDW Gran % Lymph % (Auto) Lymph # (Auto) Seg Neutrophils % Lymphocytes % RBC Morphology Hypochromasia Poikilocytosis Anisocytosis Microcytosis POC PT 16.5 H POC INR 1.4 H Sodium POC Potassium Potassium Carbon Dioxide Creatinine Glucose POC Glucose Calcium Phosphorus GGT AST ALT Alkaline Phosphatase Lactate Dehydrogenase Albumin Globulin Albumin/Globulin Ratio Meds: Medications Docusate Sodium (Colace) 100 mg PO BID [facility] Glucose Oxid/Lactoperoxid/Muramidas (Biotene) 1 each TOPICAL PRN PRN PRN Reason: Dry Mouth Lorazepam (Ativan) 1 mg SL Q2HP PRN PRN Reason: Anxiety Morphine Sulfate (Morphine) 5 - 10 mg SL Q2HP PRN PRN Reason: Pain Naloxone HCl (Narcan) 0.1 mg IV Q2MIN PRN PRN Reason: Opiate Reversal Ondansetron HCl (Zofran) 4 mg IV Q6HP PRN PRN Reason: Nausea And Vomiting Ondansetron HCl (Zofran Odt) 4 mg SL Q4HP PRN PRN Reason: Nausea And Vomiting Pantoprazole Sodium (Protonix) 40 mg PO QAMAC [facility] Last Admin: 07/19/17 08:45 Dose: 40 mg Sodium Chloride (Saline Flush) 10 ml IV Q8 [facility] Last Admin: 07/19/17 09:37 Dose: Not Given Sodium Chloride (Saline Flush) 10 ml IV Q8 [facility] Medical - PN: A/P - Time Spent With Patient Total time spent is greater than 50% in coordination of care (as documented) at patient's floor/unit and/or counseling patient: - Narrative A/P Narrative: A/P\ metastatic colon cancer Pna Pulomonary embolism failure to thrive altered mental status Anemia Plan given advanced disease, plan for palliative care only D/c non essential meds pt does not wish for IV access start on sl morphine and ativan, aware of allergy to morphine, which is nausea, i think this is not true allergy and child caregiver her circumstances wer can try again and see how she does. anticipate d/c to snf for palliative care in AM
--- NOTE | 2017-07-19 13:30 | Surgical Pathology Report ---
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 (SEE COMMENT) (ACP:djf) COMMENT: The patient's history of recent imaging that showed multiple liver metastases with an apple core lesion involving the right mid colon and regional lymphadenopathy is noted. The morphologic appearance and immunohistochemical staining pattern of the tumor is consistent with metastatic adenocarcinoma of colorectal primary. Clinical and radiographic correlation is recommended. MICROSCOPIC DESCRIPTION Examination of the liver needle biopsy demonstrates a portion hepatic parenchyma with diffuse areas of adenocarcinoma with associated mucin, hemorrhage and necrosis. The tumor forms irregular glandular structures with patchy cribriform architecture and a few interspersed acini. The malignant cells are markedly enlarged with irregular, hyperchromatic nuclei and prominent nucleoli. Intraluminal necrosis and inflammatory debris is noted, along with a few cells having intracytoplasmic mucin. (ACP:djf) Immunohistochemical panel is performed (adequate technical controls). Pancytokeratin plus: Positive CK20, CDX2: Positive CK7: Negative (expressed by bile ducts in background) Some of the tests reported here may not have been cleared or approved by the U.S. Food and Drug Administration (FDA). However, the FDA has determined that such clearance or approval is not necessary. Pursuant to the requirements of CLIA, this laboratory has established and verified the accuracy and precision of all tests, and additional information about these tests is available upon request. All technical controls are adequate. CLINICAL HISTORY Weakness; altered LOC; fever. PROCEDURAL IMPRESSION Metastasis to liver. GROSS DESCRIPTION Received in formalin labeled with the patient information, are eight needle biopsy fragments of pale brian to orange-brian tissue, each 0.1 cm in diameter and 0.1-1.3 cm in length. Totally submitted - two cassettes. (STS:sln) Electronically Signed by: Erasmo Man M.D.
[2017-07-19] MEDS: DOCUSATE SODIUM 100 MG CAPSULE PO SCH (21:33)
[2017-07-20 06:15] LABS: ALT/SGPT 46 U/l (0-40); Albumin 2.8 gm/dL (3.2-5.2); Albumin/Globulin Ratio 0.8 (1.0-2.3); Alkaline Phosphatase 253 U/L (39-117); Bilirubin,Direct 0.4 mg/dL (0.0-0.3); Blood Urea Nitrogen 10 mg/dl (8-23); Gamma Glutamyl Transpeptidase 266 U/L (5-36); Uric Acid 3.6 mg/dL (2.5-8.0)
[2017-07-20 06:37] LABS: Basophils # (Auto) 0 K/mcL (0.0-0.3); Basophils % (Auto) 0 % (0.0-2.0); Eosinophils # (Auto) 0.2 K/mcL (0.0-0.7); Eosinophils % (Auto) 2.2 % (0.0-7.0); Granulocytes % (Auto) 86.2 % (38.0-78.0); Lymphocytes # (Auto) 0.3 K/mcL (1.5-4.8); Lymphocytes % (Auto) 3.7 % (15.5-49.0); Mean Cell Volume 78.3 fL (80.0-100.0); Mean Corpuscular HGB Conc 32.2 g/dL (31.0-36.0); Mean Corpuscular Hemoglobin 25.2 pg (26.0-34.0); Monocytes # (Auto) 0.7 K/mcL (0.1-0.9); Monocytes % (Auto) 7.9 % (1.0-12.0); Platelet Count 290 K/mcL (140-440); RBC 3.72 M/mcL (4.00-5.20); Red Cell Distribution Width 19.1 % (11.5-14.5)
[2017-07-20] MEDS: PANTOPRAZOLE 40 MG TABLET PO SCH (09:10)
[2017-07-20] MEDS: DOCUSATE SODIUM 100 MG CAPSULE PO SCH (09:10)
--- NOTE | 2017-07-20 09:32 | Discharge Summary ---
Medical - DS: Prov Patient information: Note initiated : 07/20/17 at 9:27 am Service Date, if different from initiated Date: [] Patient: Odessa Owens 82 y/o F admitted on 07/17/17 for Weakness, Altered LOC , Fever/Pneumonia. Chief Complaint: [] Date of admission: 07/17/17 15:04 Discharge date: 07/20/17 Admitting clinician: Gil Tian Consults: 07/17/17 12:44 Consult to Physician [CONS] Stat Comment: Consulting Provider: Gil Tian Reason For Exam: Physician to Consult Consult to Physician [CONS] Stat Comment: Consulting Provider: Mehran Niño Reason For Exam: Physician to Consult Discharging clinician: Gil Tian Medical - DS: Meds - Discharge Medications Prescriptions: LORazepam [Lorazepam Intensol] 1 mg PO Q2HP PRN #30 ml PRN Reason: Anxiety morphine SULFATE [Morphine Sulfate] 5 mg PO Q2HP PRN #100 ml PRN Reason: pain/ anxiety Active and Home Medications: Home Medications denosumab 60 mg/mL subcutaneous syringe 60 mg SUB-Q .COMPLEX #1 ml 07/14/15 [Rx Confirmed 08/23/16 Last Taken Unknown] sertraline 50 mg tablet 50 mg PO QDAY #90 tab 09/10/15 [Rx Confirmed 07/18/17 Last Taken Unknown] simvastatin 10 mg tablet 10 mg PO QPM #90 tab 09/10/15 [Rx Confirmed 07/18/17 Last Taken Unknown] levothyroxine 50 mcg capsule 50 mcg PO QDAY #90 cap 10/08/15 [Rx Confirmed 07/18 Last Taken Unknown] gabapentin 600 mg tablet 600 mg PO TID 30 Days #90 tab 11/12/15 [Rx Confirmed Last Taken Unknown] Vitamin D3 1 each PO QDAY 08/23/16 [History Confirmed 07/18/17 Last Taken Unknown] omega-3 fatty acids 3 cap PO QDAY 08/23/16 [History Confirmed 07/18/17 Last Taken Unknown] Hydroxychloroquine Sulfate [Plaquenil] 200 mg PO HS 07/18/17 [History Confirmed 07/18/17 Last Taken Unknown] Omeprazole [PriLOSEC] 20 mg PO DAILY 07/18/17 [History Confirmed 06/05/18 Last Taken Unknown] Medical - DS: Hosp Hospital course: Ms. Owens is a 82 year old Female living by self, with close watch by family presents to the ER for evaluation of altered mental status, the patient has not been her self over the last 3 weeks, decreased appetite, and weight loss of approximately 11lbs. Initially given her confusion, TIA/ CVA was considered, Head CT was done in the ER which was neg, CXR showed possible infiltrate in the right lower lung. The patient then noted she is also having abdominal pain. The patient underwent a Abdomen and pelvis CT which showed a tumor apple core in the right colon, multiple metatstasis in the liver, and retroperitoneal metastasis. Dr Niño was consulted who noted that she is not a surgical candidate. Dr Gomez was consulted on the phone by the ER and as per the ER provider, the patient did not warrant oncological intervention at this time. The patient admitted to the hospital, She had an MRI of the head which was negative, she had a biopsy done which confirmed metastatic colon cancer, after discussing with the patients family, it was decided that no aggressive measures to be persued, just palliative are All non essential medications are being held, she will be discharged to SNF with oral pain meds and anti anxiety meds. Discharge diagnosis: Metastatic Colon Cancer - Time Spent with Patient Total time spent providing and/or coordinating discharge services: Less than 30 minutes Medical - DS: Exam - Constitutional Vitals: Vital Signs Temp Pulse Resp BP BP Pulse Ox 07/20/17 08:00 101 H 14 111/74 94 07/19/17 20:00 97.7 F 83 14 110/69 95 07/19/17 16:00 98.4 F 95 H 16 110/65 91 07/19/17 12:00 98.8 F 92 H 16 113/93 93 Intake and Output 07/19/17 07/20/17 07/20/17 21:59 05:59 13:59 Intake Total 1020 / 1020 80 / 80 40 / 40 Output Total Balance 1018 / 1018 79 / 79 40 / 40 Intake: IV 920 / 920 Oral 100 / 100 80 / 80 40 / 40 Output: # of times incontinent of urine Other: Meal Dinner Breakfast Percent of Meal Consumed Refused Refused Feeding Ability Total Assistance Stool Size Smear Stool Color Brown Weight 116 lb 8 oz Additional comments: Constitutional; Afebrile, cooperative, not in distress. Eyes- No icterus, , No periorbital swelling Ears- Ext ear normal, hearing normal to conversation. Neck- Midline trachea, supple Respiratory system: Air Entry equal on both sides, No crackles or wheezing, no rhonchi. ant exam CVS- Rate rhythm regular, S1,S2 heard, no gallop, no rub. Abdomen- Soft nontender abdomen, no organomegaly, no tenderness, no guarding or rigidity, CRYSTALIZER TENDER- AOOx2, moving all extremities, no gross focal deficit noted. Medical - DS: Data Labs on day of discharge: Labs from last 24 hours 07/20/17 07/20/17 04:46 04:46 WBC 8.7 RBC 3.72 L Hgb 9.4 L Hct 29.1 L MCV 78.3 L MCH 25.2 L MCHC 32.2 RDW 19.1 H Plt Count 290 MPV 8.4 Gran % 86.2 H Lymph % (Auto) 3.7 L [place] % (Auto) 7.9 Eos % (Auto) 2.2 Baso % (Auto) 0 Gran # 7.5 Lymph # (Auto) 0.3 L [place] # (Auto) 0.7 Eos # (Auto) 0.2 Baso # (Auto) 0 Sodium 130 L Potassium 3.8 Chloride 96 Carbon Dioxide 20 L Anion Gap 14.0 BUN 10 Creatinine 0.6 GFR Calculation 85 Glucose 92 Uric Acid 3.6 Calcium 8.6 Phosphorus 3.6 Magnesium 1.7 Total Bilirubin 0.8 Direct Bilirubin 0.4 H GGT 266 H AST 114 H ALT 46 H Alkaline Phosphatase 253 H Lactate Dehydrogenase 890 H Total Protein 6.5 Albumin 2.8 L Globulin 3.7 Albumin/Globulin Ratio 0.8 L Triglycerides 66 Medical - DS: A/P - Patient/Caregiver Discharge Instructions Activity: increase activity as tolerated Diet: Regular Diet (as toleated by patient/ comfort feeding. ) Additional Instructions: Pt being discharged as palliative care patient PCP to titrate morphine/ ativan dose . - Follow up Plan Disposition: Xfer SNF Prognosis: Undetermined Rehab Potential: Undetermined I certify that the patient requires SNF services: Yes Overall status at discharge: patient is not back to baseline
== END 2017-07-20 10:00 | DRG 374 ==
LOC: MERGE 08:27 → ED 08:27 → MEDSUR 15:02
PROVIDERS: ADMIT Internal Medicine; ATTEND Internal Medicine